=== PATIENT | female | born 2000 | race Caucasian/White ===

== ENCOUNTER 2024-06-28 22:06 | Emergency (ER) | payer MEDICAID ==
[~2024-06-28] VITALS: Ht 167.6 cm; Wt 60.0 kg
[2024-06-28 22:52] LABS: BASO # 0.03 K/mm3 (0.02-0.10); EOS % 0.8 % (1.0-5.0); HEMATOCRIT 33.8 % (37.0-47.0); HEMOGLOBIN 11.8 g/dL (12.5-16.0); LYMPH# 2.31 K/mm3 (1.50-4.00); MEAN CELL VOLUME 91 fl (78-100); MEAN CORPUSCULAR HEMOGLOBIN 32 pg (27-31); MEAN CORPUSCULAR HGB CONC 35 g/dL (33-37); MEAN PLATELET VOLUME 8.9 fl (7.4-10.4); MONO # 0.67 K/mm3 (0.20-0.80); PLATELET COUNT 307 K/mm3 (130-400); RED BLOOD COUNT 3.71 M/mm3 (4.10-5.30); RED CELL DISTRIBUTION WIDTH 12.8 % (11.5-14.5); WHITE BLOOD COUNT 12.1 K/mm3 (4.8-10.8)
[2024-06-28 23:00] LABS: ALBUMIN 3.3 g/dL (3.5-5.0); SODIUM 136 mmol/L (136-145)
[2024-06-28 23:01] LABS: CALCIUM 8.9 mg/dL (8.3-10.5)
[2024-06-28 23:02] LABS: GLUCOSE 111 mg/dL (65-105); TOTAL PROTEIN 6.4 g/dL (6.4-8.3)
[2024-06-28 23:04] LABS: CARBON DIOXIDE 21 mmol/L (22-29)
[2024-06-28 23:04] LABS: PH-URINE 6.5 (5.0 - 8.0); URINE APPEARANCE CLOUDY (CLEAR); URINE BILIRUBIN NEGATIVE (NEGATIVE); URINE BLOOD NEGATIVE (NEGATIVE); URINE COLOR YELLOW (YELLOW); URINE GLUCOSE NEGATIVE (NEGATIVE); URINE KETONE NEGATIVE (NEGATIVE); URINE LEUKOCYTE ESTERASE NEGATIVE (NEGATIVE); URINE NITRATE NEGATIVE (NEGATIVE); URINE PROTEIN(semi-quant) NEGATIVE (NEGATIVE)
[2024-06-28 23:06] LABS: TOTAL BILIRUBIN < 0.1 mg/dL (0.2-1.2)
[2024-06-28 23:08] LABS: AST-SGOT 13 U/L (5-34)
[2024-06-28 23:09] LABS: ALT/SGPT 18 U/L (0-55)
[2024-06-29 00:10] VITALS: BP 113/68
== END 2024-06-29 00:10 | disposition home or self-care (01) ==
LOC: ED 22:06
PROVIDERS: Nurse Practitioner
DX: O99.891 Other specified diseases and conditions complicating pregnancy (principal); M54.50 Low back pain, unspecified; O99.282 Endocrine, nutritional and metabolic diseases complicating pregnancy, second trimester; E86.0 Dehydration; Z3A.19 19 weeks gestation of pregnancy
CPT/HCPCS: J7120